=== PATIENT | female | born 2000 | race Caucasian/White ===

== ENCOUNTER 2023-05-01 10:44 | Outpatient (CLI) | payer BC ==
[2023-05-01] VITALS (18 sets, daily range): BP systolic 123–150; BP diastolic 52–94; PULSE 87–145
== END 2023-05-01 23:59 | disposition home or self-care (01) ==
LOC: CARD DIAG 10:44
PROVIDERS: ATTEND Internal Medicine Interventional Cardiology
DX: R55 Syncope and collapse (principal)
CPT/HCPCS: 93660

== ENCOUNTER 2024-09-15 20:44 | Inpatient (IN) | payer BC, MEDICAID ==
[~2024-09-15] VITALS: Ht 162.6 cm; Wt 58.4 kg
[2024-09-15] MEDS: ondansetron/PF 4mg/2ml inj IV ONE (22:11)
[2024-09-15] MEDS: diphenhydrAMINE 50 mg/ml inj IV ONE (22:12)
[2024-09-15] MEDS: metoclopramide 5 mg/ml inj IV ONE (22:12)
[2024-09-15] MEDS: normal saline 1000ml 1,000 ML IV ONE (22:17)
[2024-09-15 22:24] LABS: BASOPHILS # (AUTO) 0.1 X10'3 (0-0.2); BASOPHILS % (AUTO) 0.9 % (0-1); EOSINOPHILS % (AUTO) 0.2 % (0-6); HEMATOCRIT 38.4 % (35.0-45.0); HEMOGLOBIN 11.9 g/dl (12.0-16.0); LYMPHOCYTES # (AUTO) 1.4 X10'3 (1.1-4.8); LYMPHOCYTES % (AUTO) 10.7 % (21-51); MEAN CORPUSCULAR HEMOGLOBIN 20.3 PG (27.0-31.0); MEAN CORPUSCULAR VOLUME 65.5 FL (78-98); MEAN PLATELET VOLUME 8.3 FL (7.4-10.4); MONOCYTES # (AUTO) 0.6 X10'3 (0-0.9); MONOCYTES % (AUTO) 4.8 % (2-12); NEUTROPHILS # (AUTO) 10.8 X10'3 (1.8-7.7); NEUTROPHILS % (AUTO) 83.4 % (42-75); PLATELET COUNT 525 X10'3 (140-440); RED BLOOD COUNT 5.86 X10'6 (4.20-5.60); RED CELL DISTRIBUTION WIDTH 19.1 % (11.5-14.5)
[2024-09-15 22:30] LABS: ALANINE AMINOTRANSFERASE 18 U/L (12-78); ALBUMIN 5.2 G/DL (3.4-5.0); ALBUMIN/GLOBULIN RATIO 1.5 (1.1-1.5); ALKALINE PHOSPHATASE 58 IU/L (46-116); ANION GAP 18 (8-16); ASPARTATE AMINO TRANSFERASE 14 U/L (10-37); BLOOD UREA NITROGEN 7 MG/DL (7-18); BUN/CREATININE RATIO 9.9 (10.0-20.0); CALCIUM 9.5 MG/DL (8.5-10.1); CHLORIDE 102 MMOL/L (99-107); CREATININE 0.71 MG/DL (0.40-0.90); GLUCOSE 89 MG/DL (70-104); LIPASE 63 U/L (16-77); POTASSIUM 3.8 MMOL/L (3.5-5.1); SODIUM 140 MMOL/L (135-145); TOTAL CARBON DIOXIDE 19.6 MMOL/L (24-32); TOTAL PROTEIN 8.7 G/DL (6.4-8.2); eCRCL 107 ML/MIN; eGFR > 90 ML/MIN
[2024-09-15 22:46] LABS: POIKILOCYTOSIS 1+; POLYCHROMASIA FEW
[2024-09-15 22:47] LABS: ANISOCYTOSIS 2+; ELLIPTOCYTES 1+; MICROCYTOSIS 1+; SCHISTOCYTES FEW
[2024-09-15] MEDS ORDERED: ARIP5TAB53 PO (23:09)
[2024-09-15] MEDS ORDERED: HYDR-3686 PO (23:09)
[2024-09-15] MEDS ORDERED: LAMO25TA5 PO (23:09)
[2024-09-15 23:18] LABS: ETHANOL < 10 MG/DL (<10); THYROID STIMULATING HORMONE 1.22 ulU/ml (0.34-4.50)
[2024-09-16] MEDS: normal saline 1000ml 1,000 ML IV ONE (00:46)
[2024-09-16] MEDS: MIDAZolam 5mg/ml 2ml vial IV ONE (01:15)
[2024-09-16 03:12] LABS: URINE HCG NEGATIVE (NEG)
[2024-09-16 03:17] LABS: BILIRUBIN,URINE NEGATIVE (Neg); CLARITY,URINE SLIGHTLY CLOUDY (Clear); COLOR,URINE YELLOW (Yellow); GLUCOSE, URINE NEGATIVE (Neg); KETONES,URINE >=80 mg/dl (Neg); LEUKOCYTE ESTERASE ,URINE NEGATIVE (Neg); NITRITES, URINE NEGATIVE (Neg); OCCULT BLOOD,URINE NEGATIVE (Neg); PROTEIN,URINE TRACE mg/dl (Neg); UROBILINOGEN,URINE 0.2 E.U/dL (0.2-1.0)
[2024-09-16 03:20] LABS: ALBUMIN 3.6 G/DL (3.4-5.0); BLOOD UREA NITROGEN 6 MG/DL (7-18); BUN/CREATININE RATIO 10.9 (10.0-20.0); CALCIUM 7.7 MG/DL (8.5-10.1); CREATININE 0.55 MG/DL (0.40-0.90); GLUCOSE 72 MG/DL (70-104); SODIUM 141 MMOL/L (135-145); TOTAL CARBON DIOXIDE 18.2 MMOL/L (24-32); eCRCL 139 ML/MIN; eGFR > 90 ML/MIN
[2024-09-16 03:22] LABS: ANION GAP 13 (8-16); CHLORIDE 110 MMOL/L (99-107); POTASSIUM 4.1 MMOL/L (3.5-5.1)
[2024-09-16 03:33] LABS: URINE AMPHETAMINE SCREEN NEGATIVE (Neg); URINE BARBITUATE SCREEN NEGATIVE (Neg); URINE BENZODIAZEPINES SCREEN POSITIVE (Neg); URINE CANNABINOID SCREEN POSITIVE (Neg); URINE COCAINE SCREEN NEGATIVE (Neg); URINE METHADONE SCREEN NEGATIVE (Neg); URINE OPIATE SCREEN NEGATIVE (Neg); URINE PHENCYCLIDINE SCREEN NEGATIVE (Neg)
[2024-09-16 03:35] LABS: UA COLLECTION TYPE VOIDED
[2024-09-16 03:38] LABS: BACTERIA,URINE FEW /HPF (Neg); SQUAMOUS EPITHELIAL CELL,UR MODERATE /LPF (FEW)
[2024-09-16 03:39] LABS: MUCUS STRANDS FEW /LPF (Neg); RBC,URINE NONE SEEN /HPF (0-2); WBC,URINE 0-4 /HPF (0-4)
[2024-09-16] MEDS: sodium chloride 0.45% 1,000 ML IV ONE (04:07)
[2024-09-16] MEDS: lamoTRIgine 25mg tablet PO SCH (08:11)
[2024-09-16] MEDS: hydrOXYzine 25 MG tablet PO SCH (08:11)
[2024-09-16] MEDS: aripiprazole 5mg tablet PO SCH (08:11)
[2024-09-16] MEDS: LORazepam 1 MG tablet PO PRN (12:36)
[2024-09-16] MEDS ORDERED: mag hydrox/Alum hydrox/simeth 30ml oral suspension PO PRN (23:25)
[2024-09-16] MEDS ORDERED: loperamide 2mg capsule PO PRN (23:25)
[2024-09-16] MEDS ORDERED: acetaminophen 325mg tablet PO PRN ×2 (23:25)
[2024-09-17] MEDS ORDERED: chlorproMAZINE 25mg tablet PO PRN (00:30)
[2024-09-17 00:34] VITALS: RESP 16; O2SAT 100
[2024-09-17] MEDS ORDERED: diphenhydrAMINE 25mg capsule PO PRN (00:40)
[2024-09-17 07:30] VITALS: BP 154/97; PULSE 108; RESP 16; TEMP 98.6; O2SAT 99
[2024-09-17 19:00] VITALS: RESP 20; O2SAT 99
[2024-09-17 20:00] VITALS: BP_SYST 125; BP_DIAS 81; BP_DIAS 87; PULSE 86; PULSE 99; RESP 19; RESP 20; TEMP 98.7; O2SAT 99
[2024-09-17] MEDS ORDERED: aripiprazole 10MG tablet PO SCH (21:00)
[2024-09-18 07:30] VITALS: BP 131/85; PULSE 104; RESP 18; TEMP 98.6; O2SAT 99
[2024-09-18] MEDS: aripiprazole 10MG tablet PO SCH (08:12)
[2024-09-18] MEDS: magnesium hydroxide 30ml (MOM) UD suspension PO PRN (08:13)
[2024-09-18 12:27] LABS: BASOPHILS # (AUTO) 0.1 X10'3 (0-0.2); BASOPHILS % (AUTO) 1.2 % (0-1); EOSINOPHILS % (AUTO) 0.4 % (0-6); HEMOGLOBIN 11.5 g/dl (12.0-16.0); LYMPHOCYTES # (AUTO) 1.5 X10'3 (1.1-4.8); LYMPHOCYTES % (AUTO) 14.6 % (21-51); MEAN CORPUSCULAR HEMOGLOBIN 20.2 PG (27.0-31.0); MEAN CORPUSCULAR HGB CONC 31.2 g/dL (33.0-36.5); MEAN CORPUSCULAR VOLUME 64.8 FL (78-98); MEAN PLATELET VOLUME 8.4 FL (7.4-10.4); MONOCYTES # (AUTO) 0.6 X10'3 (0-0.9); MONOCYTES % (AUTO) 6.1 % (2-12); NEUTROPHILS # (AUTO) 8.1 X10'3 (1.8-7.7); NEUTROPHILS % (AUTO) 77.7 % (42-75); PLATELET COUNT 399 X10'3 (140-440); RED BLOOD COUNT 5.71 X10'6 (4.20-5.60); WHITE BLOOD COUNT 10.4 X10'3 (4.5-11.0)
[2024-09-18 13:10] LABS: ANISOCYTOSIS 2+; ELLIPTOCYTES 1+; MICROCYTOSIS 2+; PLATELET ESTIMATE NORMAL; POIKILOCYTOSIS 1+
[2024-09-18 19:19] VITALS: RESP 18; O2SAT 98
[2024-09-18 19:34] VITALS: BP 141/95; PULSE 117; RESP 20; TEMP 98.6; O2SAT 99
[2024-09-18] MEDS: hydrOXYzine 25 MG tablet PO PRN (21:56)
[2024-09-18] MEDS: traZODone 50mg tablet PO PRN (21:56)
[2024-09-19 07:30] VITALS: BP 134/85; PULSE 80; RESP 12; TEMP 97.5; O2SAT 98
[2024-09-19 19:00] VITALS: RESP 16; O2SAT 99
[2024-09-19 20:00] VITALS: BP 126/79; PULSE 94; RESP 16; TEMP 97.8; O2SAT 99
[2024-09-20 07:30] VITALS: BP 124/73; PULSE 72; RESP 14; TEMP 98.3; O2SAT 98
[2024-09-20 08:00] VITALS: RESP 14; O2SAT 98
[2024-09-20 19:00] VITALS: RESP 18; O2SAT 97
[2024-09-20 20:00] VITALS: BP 114/87; PULSE 103; RESP 18; TEMP 98.1; O2SAT 97
[2024-09-20] MEDS: lamoTRIgine 25mg tablet PO SCH (20:32)
[2024-09-20] MEDS: aripiprazole 10MG tablet PO SCH (22:00)
[2024-09-21 07:30] VITALS: BP 128/87; PULSE 92; RESP 16; TEMP 97.6; O2SAT 100
[2024-09-21 07:45] VITALS: RESP 16; O2SAT 100
[2024-09-22 07:00] VITALS: RESP 14; O2SAT 99
[2024-09-22 08:00] VITALS: BP 118/79; PULSE 73; RESP 14; TEMP 97.8; O2SAT 95
[2024-09-22 19:30] VITALS: RESP 14; O2SAT 98
[2024-09-22 20:18] VITALS: BP 136/94; PULSE 82; RESP 14; TEMP 98.3; O2SAT 100
[2024-09-23 07:00] VITALS: BP 115/74; PULSE 62; RESP 17; TEMP 98.6; O2SAT 99
[2024-09-23] MEDS ORDERED: ARIP10TA87 PO (17:26)
[2024-09-23 19:00] VITALS: RESP 19; O2SAT 98
[2024-09-23 20:00] VITALS: BP 121/80; PULSE 80; RESP 19; TEMP 98; O2SAT 98
[2024-09-24 07:30] VITALS: BP 111/68; PULSE 90; RESP 16; TEMP 98; O2SAT 98
== END 2024-09-24 13:37 | disposition home or self-care (01) | DRG 885 ==
LOC: ER 20:50 → UNDOADMIN 09-16 15:00 → ADULT MH 09-16 15:00
PROVIDERS: ADMIT Psychiatry & Neurology Psychiatry; ATTEND Psychiatry & Neurology Psychiatry
PROC: GZHZZZZ Group Psychotherapy (ICD-10-PCS; principal; 2024-09-24)
DX: F31.30 Bipolar disorder, current episode depressed, mild or moderate severity, unspecified (principal); R45.851 Suicidal ideations; F41.9 Anxiety disorder, unspecified; D50.9 Iron deficiency anemia, unspecified; Z20.822 Contact with and (suspected) exposure to COVID-19; E86.0 Dehydration; Z79.899 Other long term (current) drug therapy; Z91.018 Allergy to other foods
CPT/HCPCS: 36415; 80048; 80053; 80305; 80320; 81001; 81025; 83690; 84145; 84443; 85008; 85025; 87081; 87811; 93005; 96361; 96374; 96375; 99284; A6250; J1200; J2250; J2405; J2765; J3490; J7030; Q0177